=== PATIENT | male | born 1995 | race Caucasian/White ===

== ENCOUNTER 2023-06-21 07:40 | Outpatient (CLI) | payer OTHER, BC | END 2023-06-21 07:41 | disposition home or self-care (01) | LOC: CSHMRI 07:40 | PROVIDERS: ATTEND Neurological Surgery | DX: M47.27 Other spondylosis with radiculopathy, lumbosacral region (principal); M47.26 Other spondylosis with radiculopathy, lumbar region | CPT/HCPCS: 72148 ==